=== PATIENT | male | born 1945 | race Caucasian/White ===

== ENCOUNTER 2020-07-15 09:12 | Inpatient (IN) | payer MEDICARE ==
[~2020-07-15] VITALS: Ht 170.2 cm; Wt 61.4 kg
[~2020-07-15 09:12] MED LIST: AMIT-189 PO; CARV-50 PO; COU7.5T PO; DIL100C PO; DIPH25TA89 PO; HYDR-3973 PO; OMEG500C PO; PRAV40TA65 PO; TYLENOL
[2020-07-15 10:47] LABS: BASOPHILS % (AUTO) 0.3 % (0-1); EOSINOPHILS % (AUTO) 0.3 % (0-6); HEMATOCRIT 34.2 % (42.0-52.0); HEMOGLOBIN 11.4 g/dl (14.0-17.9); LYMPHOCYTES # (AUTO) 1.7 X10'3 (1.1-4.8); LYMPHOCYTES % (AUTO) 15.6 % (21-51); MEAN CORPUSCULAR HEMOGLOBIN 33.6 PG (27.0-31.0); MEAN CORPUSCULAR HGB CONC 33.3 g/dL (33.0-36.5); MEAN CORPUSCULAR VOLUME 100.7 FL (78-98); MEAN PLATELET VOLUME 9.4 FL (7.4-10.4); MONOCYTES # (AUTO) 1.6 X10'3 (0-0.9); MONOCYTES % (AUTO) 14.6 % (2-12); NEUTROPHILS # (AUTO) 7.7 X10'3 (1.8-7.7); NEUTROPHILS % (AUTO) 69.2 % (42-75); PLATELET COUNT 263 X10'3 (140-440); RED BLOOD COUNT 3.39 X10'6 (4.70-6.10); RED CELL DISTRIBUTION WIDTH 14.4 % (11.5-14.5); WHITE BLOOD COUNT 11.1 X10'3 (4.5-11.0)
[2020-07-15] MEDS ORDERED: normal saline 1000ML IV soln IVB ONE ×2 (10:55→16:00)
[2020-07-15 10:56] LABS: ALANINE AMINOTRANSFERASE 20 U/L (12-78); ALBUMIN 2.9 G/DL (3.4-5.0); ALBUMIN/GLOBULIN RATIO 0.8 (1.1-1.5); ALKALINE PHOSPHATASE 70 IU/L (46-116); ANION GAP 11 (8-16); ASPARTATE AMINO TRANSFERASE 20 U/L (10-37); BILIRUBIN,TOTAL 0.7 MG/DL (0.1-1.0); BLOOD UREA NITROGEN 17 MG/DL (7-18); BUN/CREATININE RATIO 19.3 (5.4-32.0); CALCIUM 8.6 MG/DL (8.5-10.1); CHLORIDE 103 MMOL/L (99-107); CREATININE 0.88 MG/DL (0.60-1.10); GLUCOSE 71 MG/DL (70-104); POTASSIUM 3.5 MMOL/L (3.5-5.1); SODIUM 139 MMOL/L (135-145); TOTAL CARBON DIOXIDE 25.4 MMOL/L (24-32); TOTAL PROTEIN 6.5 G/DL (6.4-8.2); eGFR 84 ML/MIN
--- NOTE | 2020-07-15 13:31 | NUR ---
PT HAS NOT HAD A BM SINCE HES BEEN HERE.
[2020-07-15] MEDS ORDERED: dicyclomine 10 MG capsule PO ONE (13:50)
[2020-07-15] MEDS ORDERED: loperamide 2mg capsule PO ONE ×2 (13:50→22:25)
--- NOTE | 2020-07-15 14:15 | NUR ---
STOOL SENT FOR C-DIFF
[2020-07-15 14:49] LABS: CLARITY,URINE CLOUDY (Clear); COLOR,URINE YELLOW (Yellow); GLUCOSE, URINE NEGATIVE (Neg); KETONES,URINE >=80 mg/dl (Neg); LEUKOCYTE ESTERASE ,URINE SMALL (Neg); NITRITES, URINE POSITIVE (Neg); OCCULT BLOOD,URINE TRACE-INTACT (Neg); PROTEIN,URINE TRACE mg/dl (Neg)
[2020-07-15 14:52] LABS: UA COLLECTION TYPE CLN CATCH MIDSTREAM
[2020-07-15 15:01] LABS: RBC,URINE 0-2 /HPF (0-2)
[2020-07-15 15:02] LABS: BACTERIA,URINE 3+ /HPF (Neg); CAL OXALATE CRYSTALS FEW /HPF (NEGATIVE); MUCUS STRANDS NONE SEEN /LPF (Neg); SQUAMOUS EPITHELIAL CELL,UR NONE SEEN /LPF (FEW); TRANSITIONAL EPI CELLS,URINE FEW /HPF; WBC CLUMPS,URINE MANY /HPF (NEGATIVE); WBC,URINE TNTC /HPF (0-4)
[2020-07-15] MEDS ORDERED: sulfamethoxazole/trimethoprim DS (800/160mg) tablet PO ONE (15:15)
[2020-07-15] MEDS ORDERED: ondansetron/PF 4mg/2ml inj IV PRN (16:00)
[2020-07-15] MEDS ORDERED: magnesium 4gm in 100ml NS 100 ML IV PRN (16:00)
[2020-07-15] MEDS ORDERED: potassium CL 10mEq/100ml bag 100 ML IV PRN ×2 (16:00)
[2020-07-15] MEDS ORDERED: magnesium hydroxide 30ml (MOM) UD suspension PO PRN (16:00)
[2020-07-15] MEDS ORDERED: acetaminophen 325mg tablet PO PRN ×2 (16:00)
[2020-07-15] MEDS ORDERED: mag hydrox/Alum hydrox/simeth 30ml oral suspension PO PRN (16:00)
[2020-07-15] MEDS ORDERED: potassium Cl 20 mEq SR tablet PO PRN (16:00)
[2020-07-15] MEDS ORDERED: magnesium 2GM in 50ml NS 50 ML IV PRN (16:00)
[2020-07-15] MEDS ORDERED: magnesium Cl slow-release 64mg tablet PO PRN (16:00)
[2020-07-15] MEDS ORDERED: AMLO5TAB16 PO (16:39)
[2020-07-15] MEDS ORDERED: ATOR40TA72 PO (16:39)
[2020-07-15] MEDS ORDERED: WARF-65 PO (16:39)
[2020-07-15] MEDS ORDERED: LISI40TA4 PO (16:39)
[2020-07-15] MEDS ORDERED: BACL20TA2 PO (16:39)
[2020-07-15] MEDS ORDERED: HYDR-3972 PO (16:39)
[2020-07-15] MEDS ORDERED: WARF-55 PO (16:39)
[2020-07-15] MEDS: normal saline 1000ml 1,000 ML IV SCH (17:08)
[2020-07-15] MEDS: K and/or MAG REPLACEMENT MC SCH (20:00)
[2020-07-15] MEDS ORDERED: sulfamethoxazole/trimethoprim DS (800/160mg) tablet PO SCH (20:00)
[2020-07-15] MEDS ORDERED: temazepam 15mg capsule PO PRN (21:00)
[2020-07-15] MEDS: heparin, porcine 5000 units/ml vial SQ SCH (22:33)
[2020-07-16] MEDS: normal saline 1000ml 1,000 ML IV SCH ×2 (02:00→12:00)
[2020-07-16] MEDS ORDERED: loperamide 2mg capsule PO ONE (02:55)
[2020-07-16] MEDS: vancomycin 125mg/5ml ORAL solution 5ml UD bottle PO SCH ×4 (03:20→20:18)
[2020-07-16 07:06] LABS: BASOPHILS % (AUTO) 0.4 % (0-1); EOSINOPHILS % (AUTO) 0.4 % (0-6); HEMATOCRIT 32.5 % (42.0-52.0); LYMPHOCYTES # (AUTO) 1.5 X10'3 (1.1-4.8); LYMPHOCYTES % (AUTO) 16.5 % (21-51); MEAN CORPUSCULAR HEMOGLOBIN 33.7 PG (27.0-31.0); MEAN CORPUSCULAR HGB CONC 33.7 g/dL (33.0-36.5); MEAN CORPUSCULAR VOLUME 99.9 FL (78-98); MEAN PLATELET VOLUME 9.3 FL (7.4-10.4); MONOCYTES # (AUTO) 1.1 X10'3 (0-0.9); MONOCYTES % (AUTO) 12.5 % (2-12); NEUTROPHILS # (AUTO) 6.4 X10'3 (1.8-7.7); NEUTROPHILS % (AUTO) 70.2 % (42-75); PLATELET COUNT 273 X10'3 (140-440); RED BLOOD COUNT 3.25 X10'6 (4.70-6.10); RED CELL DISTRIBUTION WIDTH 14.3 % (11.5-14.5); WHITE BLOOD COUNT 9.1 X10'3 (4.5-11.0)
[2020-07-16 07:20] LABS: ALANINE AMINOTRANSFERASE 20 U/L (12-78); ALBUMIN 2.7 G/DL (3.4-5.0); ALBUMIN/GLOBULIN RATIO 0.8 (1.1-1.5); ALKALINE PHOSPHATASE 67 IU/L (46-116); ANION GAP 12 (8-16); ASPARTATE AMINO TRANSFERASE 24 U/L (10-37); BILIRUBIN,TOTAL 0.7 MG/DL (0.1-1.0); BLOOD UREA NITROGEN 12 MG/DL (7-18); BUN/CREATININE RATIO 14.8 (5.4-32.0); CALCIUM 8.4 MG/DL (8.5-10.1); CHLORIDE 104 MMOL/L (99-107); CREATININE 0.81 MG/DL (0.60-1.10); GLUCOSE 61 MG/DL (70-104); POTASSIUM 3.4 MMOL/L (3.5-5.1); SODIUM 138 MMOL/L (135-145); TOTAL CARBON DIOXIDE 21.7 MMOL/L (24-32); TOTAL PROTEIN 6.2 G/DL (6.4-8.2); eGFR > 90 ML/MIN
--- NOTE | 2020-07-16 07:47 | NUR ---
attempted to call report; rn assuming care currently w/ another pt, will return call ~ 5min per Ranid
[2020-07-16] MEDS: heparin, porcine 5000 units/ml vial SQ SCH ×2 (08:00→20:18)
[2020-07-16] MEDS ORDERED: non-formulary drug (Warfarin Sodium 1 TAB) PO SCH (08:00)
[2020-07-16] MEDS ORDERED: warfarin 5mg tablet PO SCH (08:00)
--- NOTE | 2020-07-16 08:12 | NUR ---
complete pericare jprovided, barrier cream applied after cleaning and photo taken
--- NOTE | 2020-07-16 08:29 | NUR ---
RECEIVED REPORT FROM ER NURSE
[2020-07-16] MEDS: K and/or MAG REPLACEMENT MC SCH ×2 (08:33→20:00)
[2020-07-16 10:00] VITALS: BP 137/80
[2020-07-16] MEDS ORDERED: pneumococcal 23-VAL P-sac vacc 25 mcg/0.5ml vial IMVAC ONE (10:00)
[2020-07-16] MEDS: atorvastatin 20mg tablet PO SCH ×2 (10:35→10:40)
[2020-07-16] MEDS: lisinopril 20mg tablet PO SCH ×2 (10:39→10:40)
[2020-07-16] MEDS: amLODIPine 5mg tablet PO SCH (10:41)
[2020-07-16] MEDS: HYDROcodone/acetaminophen 5mg/325mg tablet PO PRN ×2 (13:55→19:17)
[2020-07-16 18:00] VITALS: BP 112/79
--- NOTE | 2020-07-16 18:05 | NUR ---
Patient in room [facility]TH[facility] 4007. I have received report from DELMER Brooks and had the opportunity to ask questions and assume patient care.
[2020-07-16] MEDS: baclofen 10mg tablet PO SCH (20:18)
[2020-07-16] MEDS: potassium Cl 20 mEq SR tablet PO PRN (20:26)
[2020-07-16 22:00] VITALS: BP 132/49
[2020-07-17] MEDS: potassium Cl 20 mEq SR tablet PO PRN ×3 (02:45→19:16)
[2020-07-17] MEDS: normal saline 1000ml 1,000 ML IV SCH ×3 (02:45→13:26)
[2020-07-17] MEDS: vancomycin 125mg/5ml ORAL solution 5ml UD bottle PO SCH ×4 (02:45→19:16)
[2020-07-17 06:00] VITALS: BP 167/77
--- NOTE | 2020-07-17 06:19 | NUR ---
Problems reprioritized. Patient report given, questions answered & plan of care reviewed with DELMER Tsai.
--- NOTE | 2020-07-17 06:30 | NUR ---
Patient in room ORTH[facility] 4007. I have received report from DELMER Li and had the opportunity to ask questions and assume patient care.
[2020-07-17 06:44] LABS: ALANINE AMINOTRANSFERASE 20 U/L (12-78); ALBUMIN 2.8 G/DL (3.4-5.0); ALBUMIN/GLOBULIN RATIO 0.8 (1.1-1.5); ALKALINE PHOSPHATASE 73 IU/L (46-116); ANION GAP 7 (8-16); ASPARTATE AMINO TRANSFERASE 25 U/L (10-37); BILIRUBIN,TOTAL 0.6 MG/DL (0.1-1.0); BLOOD UREA NITROGEN 11 MG/DL (7-18); BUN/CREATININE RATIO 15.1 (5.4-32.0); CALCIUM 8.6 MG/DL (8.5-10.1); CHLORIDE 104 MMOL/L (99-107); CREATININE 0.73 MG/DL (0.60-1.10); GLUCOSE 98 MG/DL (70-104); MAGNESIUM 2.1 MG/DL (1.5-2.4); POTASSIUM 3.2 MMOL/L (3.5-5.1); SODIUM 138 MMOL/L (135-145); TOTAL CARBON DIOXIDE 27.2 MMOL/L (24-32); TOTAL PROTEIN 6.3 G/DL (6.4-8.2); eGFR > 90 ML/MIN
[2020-07-17 06:52] LABS: BASOPHILS % (AUTO) 0.2 % (0-1); EOSINOPHILS # (AUTO) 0.1 X10'3 (0-0.9); EOSINOPHILS % (AUTO) 1.4 % (0-6); HEMATOCRIT 36.1 % (42.0-52.0); HEMOGLOBIN 12.1 g/dl (14.0-17.9); LYMPHOCYTES # (AUTO) 1.9 X10'3 (1.1-4.8); LYMPHOCYTES % (AUTO) 17.8 % (21-51); MEAN CORPUSCULAR HEMOGLOBIN 33.4 PG (27.0-31.0); MEAN CORPUSCULAR HGB CONC 33.5 g/dL (33.0-36.5); MEAN CORPUSCULAR VOLUME 99.6 FL (78-98); MEAN PLATELET VOLUME 9.8 FL (7.4-10.4); MONOCYTES # (AUTO) 1.9 X10'3 (0-0.9); MONOCYTES % (AUTO) 18.4 % (2-12); NEUTROPHILS # (AUTO) 6.5 X10'3 (1.8-7.7); NEUTROPHILS % (AUTO) 62.2 % (42-75); PLATELET COUNT 311 X10'3 (140-440); RED BLOOD COUNT 3.62 X10'6 (4.70-6.10); RED CELL DISTRIBUTION WIDTH 14.5 % (11.5-14.5); WHITE BLOOD COUNT 10.5 X10'3 (4.5-11.0)
[2020-07-17 07:44] LABS: TOTAL CELLS COUNTED 100
[2020-07-17 07:45] LABS: PLATELET ESTIMATE NORMAL
[2020-07-17] MEDS: K and/or MAG REPLACEMENT MC SCH ×2 (08:00→20:00)
[2020-07-17] MEDS: heparin, porcine 5000 units/ml vial SQ SCH ×2 (08:10→21:19)
[2020-07-17] MEDS: amLODIPine 5mg tablet PO SCH (08:12)
[2020-07-17] MEDS: HYDROcodone/acetaminophen 5mg/325mg tablet PO PRN ×4 (09:28→21:20)
[2020-07-17 10:00] VITALS: BP 94/63
[2020-07-17] MEDS ORDERED: iohexol 300mg/ml 100ml inj. ONE (16:40)
[2020-07-17] MEDS: metroNIDAZOLE-Flagyl 500mg/NS 100 ML IV SCH (17:19)
[2020-07-17 18:00] VITALS: BP 154/78
--- NOTE | 2020-07-17 18:43 | NUR ---
Problems reprioritized. Patient report given, questions answered & plan of care reviewed with Daniella DOWELL.
[2020-07-17] MEDS ORDERED: ciprofloxacin 250mg tablet PO SCH (20:00)
[2020-07-17] MEDS: ciprofloxacin lact 400MG/200ML 200 ML IV SCH (21:18)
[2020-07-17] MEDS: baclofen 10mg tablet PO SCH (21:19)
[2020-07-17 22:00] VITALS: BP 136/73
[2020-07-18] MEDS: vancomycin 125mg/5ml ORAL solution 5ml UD bottle PO SCH ×2 (01:06→07:48)
[2020-07-18] MEDS: metroNIDAZOLE-Flagyl 500mg/NS 100 ML IV SCH ×4 (01:06→23:58)
[2020-07-18] MEDS: HYDROcodone/acetaminophen 5mg/325mg tablet PO PRN ×4 (01:07→20:13)
[2020-07-18] MEDS: potassium Cl 20 mEq SR tablet PO PRN (01:07)
[2020-07-18 06:00] VITALS: BP_SYST 152; BP_SYST 158; BP_DIAS 75; BP_DIAS 90
[2020-07-18] MEDS: normal saline 1000ml 1,000 ML IV SCH ×2 (06:01→14:00)
[2020-07-18 06:36] LABS: BASOPHILS % (AUTO) 0.2 % (0-1); EOSINOPHILS # (AUTO) 0.2 X10'3 (0-0.9); EOSINOPHILS % (AUTO) 2.1 % (0-6); HEMATOCRIT 32.7 % (42.0-52.0); HEMOGLOBIN 11.1 g/dl (14.0-17.9); LYMPHOCYTES % (AUTO) 22.6 % (21-51); MEAN CORPUSCULAR HEMOGLOBIN 33.9 PG (27.0-31.0); MEAN CORPUSCULAR HGB CONC 34.1 g/dL (33.0-36.5); MEAN CORPUSCULAR VOLUME 99.2 FL (78-98); MEAN PLATELET VOLUME 8.9 FL (7.4-10.4); MONOCYTES # (AUTO) 1.6 X10'3 (0-0.9); MONOCYTES % (AUTO) 18.1 % (2-12); NEUTROPHILS # (AUTO) 4.9 X10'3 (1.8-7.7); PLATELET COUNT 279 X10'3 (140-440); RED BLOOD COUNT 3.29 X10'6 (4.70-6.10); RED CELL DISTRIBUTION WIDTH 14.4 % (11.5-14.5); WHITE BLOOD COUNT 8.7 X10'3 (4.5-11.0)
--- NOTE | 2020-07-18 06:36 | NUR ---
Problems reprioritized. Patient report given, questions answered & plan of care reviewed with DELMER PICKARD.
[2020-07-18 07:03] LABS: ALANINE AMINOTRANSFERASE 20 U/L (12-78); ALBUMIN 2.5 G/DL (3.4-5.0); ALBUMIN/GLOBULIN RATIO 0.7 (1.1-1.5); ALKALINE PHOSPHATASE 62 IU/L (46-116); ANION GAP 6 (8-16); ASPARTATE AMINO TRANSFERASE 22 U/L (10-37); BILIRUBIN,TOTAL 0.4 MG/DL (0.1-1.0); BLOOD UREA NITROGEN 11 MG/DL (7-18); BUN/CREATININE RATIO 16.9 (5.4-32.0); CALCIUM 8.5 MG/DL (8.5-10.1); CHLORIDE 105 MMOL/L (99-107); CREATININE 0.65 MG/DL (0.60-1.10); GLUCOSE 103 MG/DL (70-104); POTASSIUM 3.7 MMOL/L (3.5-5.1); SODIUM 138 MMOL/L (135-145); TOTAL CARBON DIOXIDE 26.7 MMOL/L (24-32); eGFR > 90 ML/MIN
[2020-07-18] MEDS: heparin, porcine 5000 units/ml vial SQ SCH ×2 (07:48→20:13)
[2020-07-18] MEDS: atorvastatin 20mg tablet PO SCH (07:48)
[2020-07-18] MEDS: amLODIPine 5mg tablet PO SCH (07:49)
[2020-07-18] MEDS: lisinopril 20mg tablet PO SCH (07:49)
[2020-07-18] MEDS: K and/or MAG REPLACEMENT MC SCH ×2 (08:00→18:36)
[2020-07-18] MEDS: ciprofloxacin lact 400MG/200ML 200 ML IV SCH ×2 (09:09→20:12)
[2020-07-18 10:00] VITALS: BP 99/59
--- NOTE | 2020-07-18 14:18 | NUR ---
PAGER ID: [phone] MESSAGE: [id number] Barbara- bladder scan was 500 PVR was [phone]. Winnie [phone]
[2020-07-18 18:00] VITALS: BP 118/60
--- NOTE | 2020-07-18 18:33 | NUR ---
Problems reprioritized. Patient report given, questions answered & plan of care reviewed with Valarie DOWELL.
[2020-07-18] MEDS: baclofen 10mg tablet PO SCH (20:12)
[2020-07-18] MEDS ORDERED: tamsulosin 0.4mg capsule PO SCH (21:00)
[2020-07-18 22:00] VITALS: BP 122/64
[2020-07-19] MEDS: HYDROcodone/acetaminophen 5mg/325mg tablet PO PRN ×4 (00:01→13:02)
--- NOTE | 2020-07-19 06:21 | NUR ---
Problems reprioritized. Patient report given, questions answered & plan of care reviewed with DELMER Mead.
--- NOTE | 2020-07-19 06:23 | NUR ---
Patient in room ORTHO 4007. I have received report from Valarie Zapata and had the opportunity to ask questions and assume patient care.
[2020-07-19 06:24] VITALS: BP 116/65
[2020-07-19 06:49] LABS: ALANINE AMINOTRANSFERASE 21 U/L (12-78); ALBUMIN 2.4 G/DL (3.4-5.0); ALBUMIN/GLOBULIN RATIO 0.8 (1.1-1.5); ALKALINE PHOSPHATASE 56 IU/L (46-116); ANION GAP 5 (8-16); ASPARTATE AMINO TRANSFERASE 23 U/L (10-37); BILIRUBIN,TOTAL 0.3 MG/DL (0.1-1.0); BLOOD UREA NITROGEN 9 MG/DL (7-18); BUN/CREATININE RATIO 12.9 (5.4-32.0); CALCIUM 8.6 MG/DL (8.5-10.1); CHLORIDE 105 MMOL/L (99-107); GLUCOSE 103 MG/DL (70-104); MAGNESIUM 1.9 MG/DL (1.5-2.4); POTASSIUM 3.6 MMOL/L (3.5-5.1); SODIUM 138 MMOL/L (135-145); TOTAL CARBON DIOXIDE 28.2 MMOL/L (24-32); TOTAL PROTEIN 5.6 G/DL (6.4-8.2); eGFR > 90 ML/MIN
[2020-07-19] MEDS: atorvastatin 20mg tablet PO SCH (07:19)
[2020-07-19] MEDS: metroNIDAZOLE-Flagyl 500mg/NS 100 ML IV SCH (07:20)
[2020-07-19] MEDS: heparin, porcine 5000 units/ml vial SQ SCH (07:20)
[2020-07-19] MEDS: amLODIPine 5mg tablet PO SCH (07:21)
[2020-07-19 07:22] VITALS: BP_SYST 115
[2020-07-19] MEDS: lisinopril 20mg tablet PO SCH (07:22)
[2020-07-19 07:37] LABS: BASOPHILS % (AUTO) 0.3 % (0-1); EOSINOPHILS # (AUTO) 0.2 X10'3 (0-0.9); HEMATOCRIT 30.2 % (42.0-52.0); HEMOGLOBIN 10.2 g/dl (14.0-17.9); LYMPHOCYTES # (AUTO) 1.9 X10'3 (1.1-4.8); LYMPHOCYTES % (AUTO) 24.6 % (21-51); MEAN CORPUSCULAR HEMOGLOBIN 33.6 PG (27.0-31.0); MEAN CORPUSCULAR HGB CONC 33.8 g/dL (33.0-36.5); MEAN CORPUSCULAR VOLUME 99.4 FL (78-98); MEAN PLATELET VOLUME 9.7 FL (7.4-10.4); MONOCYTES # (AUTO) 1.1 X10'3 (0-0.9); NEUTROPHILS # (AUTO) 4.6 X10'3 (1.8-7.7); NEUTROPHILS % (AUTO) 59.1 % (42-75); PLATELET COUNT 280 X10'3 (140-440); RED BLOOD COUNT 3.04 X10'6 (4.70-6.10); RED CELL DISTRIBUTION WIDTH 14.4 % (11.5-14.5); WHITE BLOOD COUNT 7.8 X10'3 (4.5-11.0)
[2020-07-19] MEDS ORDERED: CIPR-230 PO (07:53)
[2020-07-19] MEDS ORDERED: FLO0.4C PO (07:53)
[2020-07-19] MEDS ORDERED: DUTA0.5C40 PO (07:53)
[2020-07-19] MEDS: K and/or MAG REPLACEMENT MC SCH (08:00)
[2020-07-19] MEDS: ciprofloxacin lact 400MG/200ML 200 ML IV SCH (09:12)
--- NOTE | 2020-07-19 11:20 | NUR ---
Spoke with pt's spouse regarding DC. Spouse advised she would speak with her daughter to coordinate a pick up operator time. Spouse has not called back with a time as of yet.
--- NOTE | 2020-07-19 13:05 | NUR ---
Reviewed discharge instructions with pt. Pt verbalized understanding. Pt is alert, oriented and does not have concerns at this time. Pt dressed, belongings bagged, jc catheter in place, changed to leg bag. Pt was wheeled downstairs, assisted into vehicle, to be driven home by family.
[2020-07-19] MEDS ORDERED: warfarin 2.5mg tablet PO ONE (21:00)
== END 2020-07-19 13:10 | disposition home health service (06) | DRG 690 ==
LOC: ER 09:13 → ED HOLD 16:00 → EDBEDREQ 07-16 06:56 → ORTHO 4S 07-16 08:30
PROVIDERS: ADMIT Family Medicine; ATTEND Family Medicine
DX: N39.0 Urinary tract infection, site not specified (principal); D68.59 Other primary thrombophilia; K52.9 Noninfective gastroenteritis and colitis, unspecified; N13.8 Other obstructive and reflux uropathy; E86.0 Dehydration; B96.20 Unspecified Escherichia coli [E. coli] as the cause of diseases classified elsewhere; D64.9 Anemia, unspecified; E78.5 Hyperlipidemia, unspecified; E87.6 Hypokalemia; I10 Essential (primary) hypertension; K59.00 Constipation, unspecified; N40.1 Benign prostatic hyperplasia with lower urinary tract symptoms; R33.8 Other retention of urine; Z79.01 Long term (current) use of anticoagulants; Z86.19 Personal history of other infectious and parasitic diseases; Z87.19 Personal history of other diseases of the digestive system; Z90.81 Acquired absence of spleen; Z87.891 Personal history of nicotine dependence; Z88.0 Allergy status to penicillin; Z88.5 Allergy status to narcotic agent
CPT/HCPCS: 36415; 74018; 74177; 76775; 80053; 81001; 83735; 84145; 85007; 85025; 85610; 87045; 87046; 87077; 87088; 87186; 97110; 97116; 97161; 97530; 97535; 99285; G0378; J0744; J1644; J3490; J7030; Q9967